=== PATIENT | male | born 2005 | race African-American/Black ===

== ENCOUNTER 2023-03-08 18:52 | Emergency (ER) | payer SELFPAY ==
[~2023-03-08] VITALS: Ht 179.1 cm; Wt 78.8 kg
[2023-03-08 18:53] VITALS: BP 122/79; TEMP 99; O2SAT 98
[2023-03-10] MEDS ORDERED: PRED20TA PO (14:13)
[2023-03-10] MEDS ORDERED: AMOX875T2 PO (14:13)
== END 2023-03-09 00:15 | disposition left against medical advice (07) ==
LOC: M ED 18:52
DX: Z53.21 Procedure and treatment not carried out due to patient leaving prior to being seen by health care provider (principal)

== ENCOUNTER 2023-03-10 10:18 | Emergency (ER) | payer SELFPAY ==
[~2023-03-10] VITALS: Ht 180.3 cm; Wt 77.6 kg
[2023-03-10 10:19] VITALS: BP 128/85; TEMP 97.9; O2SAT 99
[2023-03-10] MEDS ORDERED: NS 1,000 ML IV ONE (11:55)
[2023-03-10] MEDS ORDERED: dexAMETHasone 20MG/5ML VIAL IV ONE (11:55)
[2023-03-10] MEDS ORDERED: KETOROLAC 30 MG/ML 1ML VIAL IV ONE (11:55)
[2023-03-10] MEDS ORDERED: ISOVUE-370 76% 100ML VIAL As Ordered ONE (12:34)
[2023-03-10 12:51] LABS: BASO # 0.1 10^3/uL (0.0-0.2); BASO % 0.4 % (0.0-1.0); EOS # 0.1 10^3/uL (0.0-0.5); EOS % 0.3 % (0.0-3.0); HEMATOCRIT 48.9 % (42.0-52.0); HEMOGLOBIN 16.1 g/dl (13.5-17.5); LYMPH # 1.8 10^3/uL (1.5-5.0); LYMPH % 10.9 % (24.0-44.0); MEAN CORPUSCULAR HGB CONC 32.9 g/dl (32.0-36.5); MONO # 1.2 10^3/uL (0.0-0.8); MONO % 7.5 % (2.0-8.0); NEUTROPHILS # 13.3 10^3/uL (1.5-8.5); NEUTROPHILS % 80.5 % (36.0-66.0); PLATELET COUNT, AUTOMATED 275 10^3/uL (150-450); RED BLOOD COUNT 5.75 10^6/uL (4.30-6.10); WHITE BLOOD COUNT 16.6 10^3/uL (4.0-10.0)
[2023-03-10 13:21] LABS: MONO REFLEX EBV COMP NEGATIVE (NEGATIVE)
[2023-03-10 13:37] LABS: ERYTHROCYTE SEDIMENTATION RATE 72 mm/hr (0-15)
[2023-03-10] MEDS ORDERED: ACETAMINOPHEN 500 MG TAB PO ONE (14:05)
[2023-03-10] MEDS ORDERED: AMOX875T2 PO (14:13)
[2023-03-10] MEDS ORDERED: PRED20TA PO (14:13)
[2023-03-12 18:09] LABS: EBV VIRAL CAPSID AG IgM <36.0 U/mL (0.0-35.9)
== END 2023-03-10 14:24 | disposition home or self-care (01) ==
LOC: M ED 10:18
DX: J03.90 Acute tonsillitis, unspecified (principal); Z79.52 Long term (current) use of systemic steroids; Z79.2 Long term (current) use of antibiotics
CPT/HCPCS: 70491; 80047; 83605; 85025; 85652; 86140; 86308; 86664; 86665; 87880; 96361; 96374; 99283; J1100; J1885; Q9967

== ENCOUNTER 2023-03-13 19:34 | Emergency (ER) | payer SELFPAY ==
[~2023-03-13] VITALS: Ht 154.9 cm; Wt 175.0 kg
[~2023-03-13 19:34] MED LIST: AMOX875T2 PO; PRED20TA PO
[2023-03-13 19:35] VITALS: TEMP 98.6
[2023-03-13 23:38] VITALS: BP 124/68; O2SAT 99
== END 2023-03-13 23:39 | disposition home or self-care (01) ==
LOC: M ED 19:34
DX: S93.402A Sprain of unspecified ligament of left ankle, initial encounter (principal); W22.8XXA Striking against or struck by other objects, initial encounter